=== PATIENT | male | born 1955 | race Two or more races ===

== ENCOUNTER 2022-11-09 14:02 | Outpatient (OUT) | payer MEDICARE, MEDICAID, SELFPAY ==
[2022-11-09 21:25] LABS: Anion Gap 11.4; BUN Creatinine Ratio 18.4; Calcium 8.8 mg/dL (8.5-10.1); Carbon Dioxide 25.9 mmol/L (21.0-32.0); Chloride 107 mmol/L (98-107); Estimated GFR (African America >60 (>=60); Estimated GFR (Non-African Ame 58 (>=60); Glucose 89 mg/dL (74-106); Potassium 4.3 mmol/L (3.5-5.1); Sodium 140 mmol/L (136-145)
== END 2022-11-09 14:03 ==
LOC: LAB 14:08
PROVIDERS: PCP Family Medicine; Visit Provider Nurse Practitioner Family
DX: I50.33 Acute on chronic diastolic (congestive) heart failure (principal)
CPT/HCPCS: 36415; 80048; 83880

== ENCOUNTER 2022-11-23 13:15 | Outpatient (OUT) | payer MEDICARE, MEDICAID, SELFPAY ==
--- NOTE | 2022-11-23 14:11 | CA_ITS ---
Patient: ALE MUELLER Exam Date: 11/23/2022 : 1955 Gender:M Ordering : [facility] Admission #: [id number] Family : Order #: [id number] CLICK HERE TO VIEW EXAM ECHOCARDIOGRAM REPORT PROCEDURE: CA ECHO DOPPLER COMPLETE INDICATIONS: Acute on chronic diastolic heart failure, Afib COMPARISON: None. DESCRIPTION: COMPLETE ECHOCARDIOGRAM Real-time transthoracic echocardiography with 2D, M-mode, spectral and color flow Doppler performed. QUALITY: Technical quality was good. LEFT VENTRICLE: Normal chamber size. Borderline left ventricular hypertrophy. Global left ventricular systolic function is normal. LV EF: Visual estimation of left ventricular ejection fraction is 55% DIASTOLIC: Not adequately assessed due to heart rhythm. ATRIAL SEPTUM: LEFT ATRIUM: Severe dilatation. RIGHT ATRIUM: Severe dilatation. RIGHT VENTRICLE: Mild dilatation. Preserved right ventricular systolic function. TRICUSPID VALVE: Normal mobility and thickness. No stenosis with mild regurgitation. Mild pulmonary hypertension. RVSP 42 mmHg MITRAL VALVE: Normal mobility and thickness. No evidence of mitral valve stenosis. There is no mitral annular calcification. Mild mitral regurgitation. AORTIC VALVE: Normal trileaflet appearance. Normal leaflet mobility. No evidence of aortic valve stenosis. Trivial aortic regurgitation. AORTIC ROOT: Normal diameter and appearance. PULMONIC VALVE: Normal thickness and mobility. No stenosis. No regurgitation. PERICARDIUM: No evidence of pericardial effusion. IVC: Collapses with inspirations. Moderately dilated measuring 3.0 cm. PLEURA: CONCLUSION: 1. Normal left ventricular systolic function. LVEF is 55%. 2. Mildly dilated right ventricle with preserved systolic function. 3. Mild mitral and tricuspid regurgitation. 4. Severely dilated atria. 5. Mildly elevated right-sided pressures. RVSP is 42 mmHg. Adult Echocardiography Procedure Report Left Ventricle LVEDD (3.7 - 5.6 cm): 5.06 cm LVESD (2.2 - 4.0 cm): 3.66 cm LVIVS thickness (0.6 - 1.2 cm): 9.18 mm LVPW thickness (0.5 - 1.0 cm): 1.02 cm LVOT Max Gradient: 3 mm[Hg] Peak Velocity (LVOT): 85.70 cm/s Mean Velocity (LVOT): 55.50 cm/s LVOT Diameter 2.40 cm Left Ventricular Ejection Fraction: 55 % Left Atrium LA Volume Index (2D A2C): 816084 mm3 Left Atrium Systolic Dimension: 6.00 cm Mitral Valve Mitral Valve E-Wave Peak Velocity: 102.00 cm/s Right Ventricle Aorta AO Root Diam: 3.50 cm Aortic Valve AoV Area (Peak Juvencio): 3.84 cm2 AoV Area (VTI): 4.22 cm2 Peak Velocity(Antegrade Flow): 101.00 cm/s Peak Gradient(Antegrade Flow): 4 mm[Hg] Mean Velocity(Antegrade Flow): 71.60 cm/s Mean Gradient(Antegrade Flow): 2 mm[Hg] Velocity Time Integral: 19.80 cm Tricuspid Valve Peak Velocity (Regurgitant Flow): 293.00 cm/s Peak Velocity: 68.10 cm/s Pulmonic Valve Peak Velocity: 93.70 cm/s, 97.70 cm/s Peak Gradient: 4 mm[Hg] Right Atrium Dictated by: Eugene Andrade M.D. on 11/25/2022 at 17:38 Approved by: Eugene Andrade M.D. on 11/25/2022 at 17:42
== END 2022-11-23 13:16 ==
LOC: CARD 13:16
PROVIDERS: PCP Family Medicine; Visit Provider Nurse Practitioner Family
DX: I50.33 Acute on chronic diastolic (congestive) heart failure (principal); I48.91 Unspecified atrial fibrillation
CPT/HCPCS: 93306

== ENCOUNTER 2022-12-09 14:49 | Outpatient (OUT) | payer MEDICARE, MEDICAID, SELFPAY ==
[2022-12-09 15:37] LABS: Anion Gap 9.7; BUN Creatinine Ratio 18.6; Calcium 8.9 mg/dL (8.5-10.1); Carbon Dioxide 27.5 mmol/L (21.0-32.0); Chloride 108 mmol/L (98-107); Estimated GFR (African America >60 (>=60); Estimated GFR (Non-African Ame >60 (>=60); Glucose 99 mg/dL (74-106); Potassium 4.2 mmol/L (3.5-5.1); Sodium 141 mmol/L (136-145)
== END 2022-12-09 14:50 | disposition home or self-care (01) ==
PROVIDERS: PCP Family Medicine; Visit Provider Internal Medicine Cardiovascular Disease
DX: I50.32 Chronic diastolic (congestive) heart failure (principal)
CPT/HCPCS: 36415; 80048; 83880